=== PATIENT | male | born 1975 | race Caucasian/White ===

== ENCOUNTER 2025-09-23 15:12 | Emergency (ER) | payer BC, SELFPAY ==
[2025-09-23] MEDS ORDERED: Ketorolac Tromethamine 30 MG (1 mL) VIAL ONE (17:24)
[2025-09-23 17:49] LABS: #Basophils 0.08 10x3/uL (0.0-0.2); #Eosinophils 0.16 10x3/uL (0.0-0.5); #Monocytes 0.75 10x3/uL (0.0-1.1); #Neutrophils 5.05 10x3/uL (1.5-8.4); %Basophils 1.0 % (0.0-2.0); %Eosinophils 2.0 % (0.0-6.0); %Lymphocytes 24.4 % (18.0-47.0); %Monocytes 9.4 % (0.0-10.0); %Neutrophils 63.1 % (40.0-75.0); Hematocrit 49.7 % (38.8-50.0); Hemoglobin 16.8 g/dL (13.5-17.5); Mean Corpuscular Hemoglobin 29.3 pg (27.0-33.0); Mean Corpuscular Volume 86.6 fL (81.2-95.1); Platelet Count 353 10x3/uL (150-450); Red Blood Cell (RBC) Count 5.74 10x6/uL (4.32-5.72); White Blood Cell (WBC) Count 8.00 10x3/uL (3.5-10.5)
[2025-09-23 18:06] LABS: ALT (SGPT) 52 U/L (Less than 45); AST (SGOT) 28 U/L (11-34); Albumin 4.4 g/dL (3.1-4.5); Alkaline Phosphatase 131 U/L (40-110); Anion Gap 11 mmol/L (10-20); BUN (Urea Nitrogen) 8 mg/dL (8.4-25.7); Bilirubin, Total 0.3 mg/dL (0.3-1.2); Calc. Creatinine Clearance 0 mL/min (70-130); Calcium 10.0 mg/dL (7.8-10.44); Carbon Dioxide 30 mmol/L (22-29); Chloride 104 mmol/L (98-107); Globulin 3.7 g/dL (2.4-3.5); Glucose 85 mg/dL (70-105); Potassium 4.1 mmol/L (3.5-5.1); Sodium 141 mmol/L (136-145)
== END 2025-09-23 20:33 | disposition home or self-care (01) ==
LOC: CSHERS 15:12
DX: N50.812 Left testicular pain (principal); N43.3 Hydrocele, unspecified; Z87.891 Personal history of nicotine dependence
CPT/HCPCS: 74176; 76870; 80053; 85025; 93976; 96374; J1885